=== PATIENT | female | born 1945 | race Caucasian/White ===

== ENCOUNTER 2017-06-03 10:54 | Day surgery (SDC) | payer MEDICARE ==
[~2017-06-03] VITALS: Ht 157.5 cm; Wt 62.6 kg
[~2017-06-03 10:54] MED LIST: ACET500; ALBU.083IS IH; ALBU3IS INH; ALLO300 PO; AMOCLA500 PO; AMOCLA875 PO; ASPI81CH PO; Azulfidine500 MG PO; BENZ100A PO; BISA10S PR; CARI350; CELE200 PO; CEPH500 PO; CHLO500 PO; CIPR500 PO; CITA20; CVS DISPOSABLE399 ML PR; CYCL10 PO; Cyclobenzaprine5 MG PO; DOCU100 PO; DULO30 PO; FERR325 PO; FISH1000; FLUO.1OPSO OD; FLUSAL1005 IH; FLUT.05NI; GABA100 PO; GUAI600T33 PO; HYDACE25S PR; HYDSUL200; HYDSUL200 PO; IBUP800; IBUP800 PO; LEVFLO500 PO; LORA.5 PO; MEPE50; MEPE50 PO; METPRE4DP PO; METR500 PO; MIRT15 PO; Milk Of Ma400 MG/5 M PO; Naprosyn500 MG PO; Norco 5-325 Ta1 EACH PO; OMEP20ER PO; ONDA4SO IV; OXYACE5T PO; PAIN RELIEVER500 MG PO; PENVK500 PO; PRED10 PO; PRED20 PO; PROACE100 PO; PROM25 PO; Prednisone20 MG PO; RXCEPH500 PO; RXPROM25 PO; RXSULTRIDS PO; SENN187 PO; SERT50 PO; SOMA250 MG PO; SULF500 PO; SULF500A; SULF500A PO; SULTRIDS PO; TRAM50; TRAM50 PO; Ultram50 MG PO; VENL37.5ER PO; WALKER USE; XARELTO10 MG PO; [UNRECOGNIZED DRUG - OTHER]
[2017-06-04] MEDS ORDERED: TRAM50 PO (16:43)
[2017-06-04] MEDS ORDERED: Zofran8 MG PO (18:20)
[2017-06-04] MEDS ORDERED: Benadryl25 MG PO (18:20)
[2017-08-31] MEDS ORDERED: PRED5 PO (08:40)
[2017-08-31] MEDS ORDERED: Omeprazole20 M1 PO (08:40)
== END 2017-06-03 16:30 | disposition home or self-care (01) ==
LOC: ORSCSDS 10:54
PROVIDERS: Podiatrist Foot & Ankle Surgery
PROC: 0SGN04Z Fusion of Left Metatarsal-Phalangeal Joint with Internal Fixation Device, Open Approach (ICD-10-PCS; principal; 2017-06-03 12:45)
DX: M20.12 Hallux valgus (acquired), left foot (principal); Z96.9 Presence of functional implant, unspecified; M06.9 Rheumatoid arthritis, unspecified; J45.909 Unspecified asthma, uncomplicated; Z87.891 Personal history of nicotine dependence; E03.9 Hypothyroidism, unspecified; Z79.899 Other long term (current) drug therapy
CPT/HCPCS: C1713; J0171; J0690; J1885; J2250; J3010

== ENCOUNTER 2017-06-04 16:00 | Emergency (ER) | payer MEDICARE, SELFPAY ==
[~2017-06-04] VITALS: Ht 157.5 cm; Wt 62.6 kg
[2017-06-04] MEDS ORDERED: TRAM50 PO (16:43)
[2017-06-04] MEDS ORDERED: Benadryl25 MG PO (18:20)
[2017-06-04] MEDS ORDERED: Zofran8 MG PO (18:20)
[2017-08-31] MEDS ORDERED: PRED5 PO (08:40)
[2017-08-31] MEDS ORDERED: Omeprazole20 M1 PO (08:40)
== END 2017-06-04 18:38 | disposition home or self-care (01) ==
LOC: ER 16:00
DX: G89.18 Other acute postprocedural pain (principal); M79.672 Pain in left foot; T40.2X5A Adverse effect of other opioids, initial encounter; K21.9 Gastro-esophageal reflux disease without esophagitis; Z88.8 Allergy status to other drugs, medicaments and biological substances; Z88.5 Allergy status to narcotic agent; Z88.2 Allergy status to sulfonamides; Z88.1 Allergy status to other antibiotic agents; Z98.890 Other specified postprocedural states
CPT/HCPCS: 96374; 99283; J1885

== ENCOUNTER 2017-09-19 00:44 | Day surgery (SDC) | payer MEDICARE ==
[~2017-09-19 00:44] MED LIST changes: +Benadryl25 MG PO; +Omeprazole20 M1 PO; +PRED5 PO; +Zofran8 MG PO
== END 2017-09-19 11:50 | disposition home or self-care (01) ==
LOC: ATC 00:44
DX: M05.9 Rheumatoid arthritis with rheumatoid factor, unspecified (principal); Z96.653 Presence of artificial knee joint, bilateral
CPT/HCPCS: J7050; Q5103

== ENCOUNTER 2017-11-30 13:42 | Day surgery (SDC) | payer MEDICARE, OTHER | END 2017-11-30 22:43 | disposition home or self-care (01) | LOC: ATC 13:42 | DX: M05.9 Rheumatoid arthritis with rheumatoid factor, unspecified (principal); Z79.52 Long term (current) use of systemic steroids; Z79.899 Other long term (current) drug therapy | CPT/HCPCS: 96413; 96415; J7050; Q5103 ==

== ENCOUNTER 2018-06-20 15:22 | Inpatient (IN) | payer MEDICARE, OTHER ==
[~2018-06-20] VITALS: Ht 157.5 cm; Wt 59.8 kg
[~2018-06-20 15:22] MED LIST changes: +Prednisone10 MG PO; +Voltaren100 GM TOP
[2018-06-20 16:55] LABS: Hematocrit 40.5 % (33.0-51.0); Hemoglobin 12.6 g/dL (11.5-16.0); Mean Corpuscular HGB 28.1 pg (26.0-34.0); Mean Corpuscular HGB Conc 31.1 g/dL (31.5-36.5); Mean Corpuscular Volume 90 fL (80-100); Mean Platelet Volume 10.3 fL (9.1-12.4); Platelet Count 248 K/mm3 (150-400); RDW Coefficient Variation 16.4 % (11.7-14.2); RDW Standard Deviation 54.4 fL (35.1-46.3); Red Blood Cell Count 4.49 M/mm3 (3.80-5.20); White Blood Cell Count 26.12 K/mm3 (4.00-11.30)
[2018-06-20 17:14] LABS: Albumin, Blood 2.8 g/dL (3.4-5.0); Albumin/Globulin Ratio 0.7 (0.8-1.8); Bilirubin, Total 0.5 mg/dL (0.1-1.0); Calcium, Blood 8.5 mg/dL (8.5-10.1); Creatinine, Blood 1.62 mg/dL (0.40-1.00); Globulin, Blood 4.1 g/dL (2.2-4.0); Potassium, Blood 3.3 mmol/L (3.5-5.5); Total Protein, Blood 6.9 g/dL (6.4-8.2)
[2018-06-20 17:35] LABS: BAND PERCENT MAN 27 % (0-8); BASOPHILS ABSOLUTE MAN 0.26 K/mm3 (0.00-0.23); BASOPHILS PERCENT MAN 1 % (0-2); EOSINOPHILS PERCENT MAN 0 % (0-6); LYMPHOCYTES ABSOLUTE MAN 1.56 K/mm3 (0.84-5.20); LYMPHOCYTES PERCENT MAN 6 % (21-46); METAMYELOCYTE ABSOLUTE MAN 0.78 K/mm3 (0.00-0.00); METAMYELOCYTE PERCENT MAN 3 % (0-0); MONOCYTES ABSOLUTE MAN 1.04 K/mm3 (0.16-1.47); MONOCYTES PERCENT MAN 4 % (4-13); NEUTROPHILS ABSOLUTE MAN 22.46 K/mm3 (1.96-9.15); SEG NEUTROPHILS PERCENT MAN 59 % (41-73); TOTAL CELLS COUNTED 100
--- NOTE | 2018-06-20 18:19 | NUR ---
Initial Visit: Palliative Care Consult for AD/POLST. Spoke with Vamsi CARDONA and he requests palliative care consult to discuss completing a POLST with Pt. Pt has chosen a code status of DNR. Pt is A&Ox4 and reports 7/10 pain in her left rib cage area. She denies anxiety and SOB at this time. Pt reports she experiences anxiety on occasion and is able to manage symptom with distraction technique. Pt denies nausea at this time but reports that she was experiencing nausea/vomiting before she arrived to hospital. Pt states it is due to her heart burn. Pt lives at home with her and is of Spiritism rossy. She reports adequate support at home. She has a son that lives next door and comes over to assist when ask. Pt reports during the times that she does not feel well her son comes and cooks the meals. Other velasco Pt reports that she is independent with her ADLs. Discussed AD/POLST with Pt. She reports having her POLST partially completed at home and does not want to complete a new one at this time. She states that she will complete the one that she has. Pt reports no other concerns at this time. Will remain available.
[2018-06-20] MEDS ORDERED: PRED5 PO (18:42)
[2018-06-20] MEDS ORDERED: OMEPRAZOLE20 MG PO (18:43)
--- NOTE | 2018-06-20 19:15 | NUR ---
ASSUMED CARE- PT ARRIVES TO [facility] AT APPROXIMATELY 1850, REPORT TAKEN FROM MERCEDES REEDER. PT IS AOX4. VSS. CURRENTLY AMBULATING WITH STANDBY ASSIST WITH NO SIGNS OF WEAKNESS. PT REPORTS MILD DYSPNEA ON EXERTION- O2 SATS REMAINED >90%. HEART RHYTHM IS NORMAL SINUS. LUNG SOUNDS CLEAR IN THE UPPER LOBES, DIMINISHED IN THE BASES. HACKING, NON-PRODUCTIVE COUGH NOTED. PT REPORTING PAIN TO THE L LOWER RIBS AND ABDOMEN FROM COUGHING. PT ORIENTED TO ROOM AND CALL LIGHT SYSTEM- EDUCATED ON CALLING FOR ASSISTANCE WITH AMBULATION. WILL CONTINUE WITH ADMISSION AND MONITORING. BED IN LOW POSITION, CALL LIGHT IN REACH.
[2018-06-20 19:38] LABS: Source, Urine Clean Catch
[2018-06-20 19:43] LABS: Bilirubin, Urine Neg (Neg); Blood, Urine 2+ (Neg); Glucose Qualitative, Urine Neg (Neg); Ketones, Urine Neg (Neg); Leukocyte Esterase, Urine 2+ (Neg); Nitrite, Urine Neg (Neg); Protein, Urine 1+ (Neg); Urobilinogen, Urine NORM (Normal)
[2018-06-20] MEDS ORDERED: SOMA350 MG PO (19:46)
[2018-06-20 19:49] LABS: Appearance, Urine Clear (Clear); Color, Urine Yellow (P-Yellow)
[2018-06-20 19:50] LABS: Bacteria Many /hpf; Red Blood Cells, Urine 0-2 /hpf (0-2); Squamous Epithelial Cells Few /hpf (Few)
[2018-06-20 20:03] LABS: Influenza A Negative (NEGATIVE); Influenza B Negative (NEGATIVE)
[2018-06-20 20:42] LABS: Creatinine, Urine Random 80.5 mg/dL (27.00-270.00)
[2018-06-21 04:12] LABS: Hematocrit 33.1 % (33.0-51.0); Hemoglobin 10.4 g/dL (11.5-16.0); Mean Corpuscular HGB 28.7 pg (26.0-34.0); Mean Corpuscular HGB Conc 31.4 g/dL (31.5-36.5); Mean Corpuscular Volume 91 fL (80-100); Mean Platelet Volume 10.1 fL (9.1-12.4); Platelet Count 203 K/mm3 (150-400); RDW Coefficient Variation 16.7 % (11.7-14.2); RDW Standard Deviation 56.5 fL (35.1-46.3); Red Blood Cell Count 3.62 M/mm3 (3.80-5.20)
[2018-06-21 04:44] LABS: Albumin, Blood 1.9 g/dL (3.4-5.0); Albumin/Globulin Ratio 0.6 (0.8-1.8); Bilirubin, Total 0.3 mg/dL (0.1-1.0); Bun/Creatinine Ratio 21.2 (12.0-20.0); Calcium, Blood 7.5 mg/dL (8.5-10.1); Creatinine, Blood 1.04 mg/dL (0.40-1.00); Globulin, Blood 3.1 g/dL (2.2-4.0)
--- NOTE | 2018-06-21 06:03 | NUR ---
SHIFT SUMMARY- PT HAS REMAINED AOX4 THROUGHOUT SHIFT. PLEASANT AND COOPERATIVE WITH CARE. PT WITH EPISODES OF HYPOTENSION THROUGHOUT THE NIGHT, ALL OTHER VSS. ONE LITER OF FLUIDS ORDERED FOR HYPOTENSION TO RUN @500 ML/HR WITH LITTLE CHANGE TO BP. PT IS ASYMPTOMATIC AND REPORTS THAT SYSTOLIC BP RUNS IN THE 90'S-100'S AT BASELINE. O2 SATS HAVE REMAINED >90% THROUGHOUT THE NIGHT ON RA. CONTINUES TO HAVE HACKING, NON-PRODUCTIVE COUGH. MEDICATED ONCE FOR HEADACHE PAIN THAT DECREASED WITH ORDERED MEDICATIONS. NO OTHER CHANGES NOTED FROM INITIAL ASSESSMENT. WILL CONTINUE TO MONITOR AND REPORT TO ONCOMING SHIFT RN. BED IN LOW POSITION, CALL LIGHT IN REACH.
--- NOTE | 2018-06-21 09:42 | NUR ---
NURSING PCU DAYSHIFT: Assumed care of pt at approx 0700. A/O, cooperative w/care. Mild general weakness noted though can reposition independently. C/O 6-7/10 back/rib pain r/t cough, denies need for medication tx at this time. Skin is fragile w/no breakdown noted. Tele in place, NSR, no c/o CP/pressure, BP stable. L/S w/exp wheezes t/o, dyspnea w/exertion, O2 sat low to mid 90's on RA, harsh cough producing stringy/blood tinged sputum. Abd SNT, BT+, voiding w/o difficulty per pt. PIV x1, NS infusing at 100cc/hr. Pt denies any current needs or questions regarding plan of care. Call light in reach and pt is able to use w/o difficulty. Awaiting rounding from PMD, will discuss possible status change. Cont to monitor for any changes.
--- NOTE | 2018-06-21 12:14 | NUR ---
NURSING PCU DAYSHIFT TRANSFER SUMMARY: No acute changes noted t/o the a.m. Seen by PMD, new d/o received. Pt changed to medical status w/o tele, bed assignment received. Awaiting callback from accepting RN to provide telephone report. Will xfer pt via w/c, cont to monitor until transfer to medical floor.
--- NOTE | 2018-06-21 17:34 | NUR ---
SHIFT SUMMARY PATIENT WAS TRANSFERED FROM PCU IN THE AFTERNOON FOR PNUMONIA, RIGHT LUNG SOUNDS CLEAR, LLL WAS COURSE. PATIENT IS ABLE TO SWALLOW MEDICATIONS WITH WATER. PATIENT IS ALERT, ORIENTATED, AND COOPERATIVE. PAIN IN LEFT RIB AREA WITH MOVMENT OR DEEP BREATHING. AMBULATES WITH STANDBY ASSIST, GOT A LITTLE SHORT OF BREATH DURING AMBULATION, BUT DOES WELL ON ROOM AIR.
--- NOTE | 2018-06-21 17:35 | NUR ---
SHIFT SUMMARY- PCU TRANSFER THIS AFTERNOON. PT A/OX4, SBA INTO BATHROOM. PT MEDICATED X1 WITH TYLENOL. LS DIMINISHED, WITH SLIGHT COARSENESS TO LLL. SOB WITH EXERTION, ON RA. PAIN WITH INSPIRATION, OCC PRODUCTIVE COUGH WITH THICK YELLOW SPUTUM WITH BLOOD STREAKED. HRR. VSS. NO ACUTE CHANGES SINCE ARRIVAL TO FLOOR.
[2018-06-22 05:37] LABS: Hematocrit 31.1 % (33.0-51.0); Hemoglobin 9.5 g/dL (11.5-16.0); Mean Corpuscular HGB 28.1 pg (26.0-34.0); Mean Corpuscular HGB Conc 30.5 g/dL (31.5-36.5); Mean Corpuscular Volume 92 fL (80-100); Mean Platelet Volume 10.8 fL (9.1-12.4); Platelet Count 200 K/mm3 (150-400); RDW Coefficient Variation 17.2 % (11.7-14.2); RDW Standard Deviation 58.2 fL (35.1-46.3); Red Blood Cell Count 3.38 M/mm3 (3.80-5.20); White Blood Cell Count 14.18 K/mm3 (4.00-11.30)
[2018-06-22 06:08] LABS: BAND PERCENT MAN 3 % (0-8); BASOPHILS PERCENT MAN 0 % (0-2); EOSINOPHILS PERCENT MAN 0 % (0-6); LYMPHOCYTES ABSOLUTE MAN 0.85 K/mm3 (0.84-5.20); LYMPHOCYTES PERCENT MAN 6 % (21-46); MONOCYTES ABSOLUTE MAN 0.56 K/mm3 (0.16-1.47); MONOCYTES PERCENT MAN 4 % (4-13); NEUTROPHILS ABSOLUTE MAN 12.76 K/mm3 (1.96-9.15); SEG NEUTROPHILS PERCENT MAN 87 % (41-73); TOTAL CELLS COUNTED 100
[2018-06-22 06:12] LABS: Alanine Aminotransfer (ALT/SGP 12 U/L (12-78); Albumin/Globulin Ratio 0.6 (0.8-1.8); Alk Phos 112 U/L (50-136); Anion Gap 7 mmol/L (6-16); Aspartate Aminotrans (AST/SGOT 19 U/L (12-37); Bilirubin, Total 0.2 mg/dL (0.1-1.0); Blood Urea Nitrogen 16 mg/dL (8-24); Bun/Creatinine Ratio 17.1 (12.0-20.0); CO2, Blood 23 mmol/L (21-32); Chloride, Blood 114 mmol/L (98-108); Creatinine, Blood 0.94 mg/dL (0.40-1.00); Globulin, Blood 3.4 g/dL (2.2-4.0); Glomerular Filtration Rate >60 (60-); Glucose, Blood 82 mg/dL (70-99); Potassium, Blood 3.9 mmol/L (3.5-5.5); Sodium, Blood 144 mmol/L (136-145); Total Protein, Blood 5.4 g/dL (6.4-8.2)
--- NOTE | 2018-06-22 06:13 | NUR ---
SHIFT SUMMARY PT HAD NO ISSUES NOTED. PT HAD LITTLE URINE OUTPUT AND POOR PO FLUID INTAKE. PT MAY BENEFIT FROM IV HYDRATION. PT HAS SLEPT WELL T/O SHIFT. PT CURRENTLY SLEEPING AND BREATHING EASY. CALL LIGHT IN REACH.
--- NOTE | 2018-06-22 18:13 | NUR ---
PATIENT ALERT AND ORIENTED. AMBULATORY, STEADY GAIT IN ROOM. VERY TALKATIVE. COOPERATIVE. INFREQUENT COUGH. UNLABORED RESPIRATIONS. IV PATENT. WILL CONTINUE TO MONITOR.
--- NOTE | 2018-06-23 04:41 | NUR ---
HAND CARVER SUMMARY NO ACUTE CHANGES THIS SHIFT. PT AAOX4 AND VERY PLEASANT. STANDBY ASSIST INTO THE BATHROOM. DENIES PAIN, SOB, N/V. CALLS APPROPRIATELY FOR ASSISTANCE. VSS, WILL CONTINUE TO MONITOR.
[2018-06-23 05:39] LABS: BASOPHILS ABSOLUTE AUTO 0.02 K/mm3 (0.00-0.23); BASOPHILS PERCENT AUTO 0 % (0-2); EOSINOPHILS ABSOLUTE AUTO 0.03 K/mm3 (0.00-0.68); EOSINOPHILS PERCENT AUTO 0 % (0-6); Hematocrit 30.2 % (33.0-51.0); Hemoglobin 9.2 g/dL (11.5-16.0); IMMATURE GRAN ABSOLUTE AUTO 0.07 K/mm3 (0.00-0.10); IMMATURE GRAN PERCENT AUTO 1 % (0-1); LYMPHOCYTES PERCENT AUTO 19 % (21-46); MONOCYTES ABSOLUTE AUTO 0.55 K/mm3 (0.16-1.47); MONOCYTES PERCENT AUTO 7 % (4-13); Mean Corpuscular HGB 28.1 pg (26.0-34.0); Mean Corpuscular HGB Conc 30.5 g/dL (31.5-36.5); Mean Corpuscular Volume 92 fL (80-100); Mean Platelet Volume 10.6 fL (9.1-12.4); NEUTROPHILS ABSOLUTE AUTO 6.04 K/mm3 (1.96-9.15); NEUTROPHILS PERCENT AUTO 73 % (41-73); Platelet Count 205 K/mm3 (150-400); RDW Coefficient Variation 17.5 % (11.7-14.2); RDW Standard Deviation 59.7 fL (35.1-46.3); Red Blood Cell Count 3.27 M/mm3 (3.80-5.20); White Blood Cell Count 8.31 K/mm3 (4.00-11.30)
[2018-06-23 06:10] LABS: Alanine Aminotransfer (ALT/SGP 12 U/L (12-78); Albumin, Blood 2.1 g/dL (3.4-5.0); Albumin/Globulin Ratio 0.7 (0.8-1.8); Alk Phos 104 U/L (50-136); Anion Gap 7 mmol/L (6-16); Aspartate Aminotrans (AST/SGOT 12 U/L (12-37); Bilirubin, Total 0.3 mg/dL (0.1-1.0); Blood Urea Nitrogen 11 mg/dL (8-24); CO2, Blood 22 mmol/L (21-32); Calcium, Blood 8.1 mg/dL (8.5-10.1); Chloride, Blood 114 mmol/L (98-108); Creatinine, Blood 0.78 mg/dL (0.40-1.00); Globulin, Blood 3.2 g/dL (2.2-4.0); Glomerular Filtration Rate >60 (60-); Glucose, Blood 123 mg/dL (70-99); Sodium, Blood 143 mmol/L (136-145); Total Protein, Blood 5.3 g/dL (6.4-8.2)
--- NOTE | 2018-06-23 10:21 | NUR ---
SHIFT HAND OFF TO KRYSTAL Ramirez RN. NO CHANGES IN PT. possible d/c today
--- NOTE | 2018-06-23 10:26 | NUR ---
BEDSIDE REPORT RECEIVED. PT LYING IN BED, MANSOOR. SPOUSE AT BEDSIDE. PT DENIES PAIN. PT WOULD LIKE TO GO HOME TODAY. WILL COORDINATE WITH PROVIDER.
[2018-06-23] MEDS ORDERED: AZIT500 PO (11:47)
[2018-06-23] MEDS ORDERED: Mucinex600 MG PO (11:47)
--- NOTE | 2018-06-23 12:00 | NUR ---
DC REVIEWED WITH PT AND FAMILY. RX FAXED TO [facility]. IV REMOVED, TIP INTACT. PT WANTS TO EAT LUNCH BEFORE LEAVING.
--- NOTE | 2018-06-23 12:38 | NUR ---
PT ESCORTED TO LOBBY VIA WC. ALL BELONGINGS WITH PT.
== END 2018-06-23 12:32 | disposition home or self-care (01) | DRG 871 ==
LOC: ER 15:22 → PCU 17:51 → MEDS 06-21 12:34
PROVIDERS: Nurse Practitioner Acute Care; Physician Assistant; ADMIT Internal Medicine
DX: A41.9 Sepsis, unspecified organism (principal); J18.9 Pneumonia, unspecified organism; D84.9 Immunodeficiency, unspecified; E87.2 Acidosis; N17.9 Acute kidney failure, unspecified; R65.20 Severe sepsis without septic shock; M06.9 Rheumatoid arthritis, unspecified; J45.20 Mild intermittent asthma, uncomplicated; E87.6 Hypokalemia; M19.90 Unspecified osteoarthritis, unspecified site; F32.9 Major depressive disorder, single episode, unspecified; K21.9 Gastro-esophageal reflux disease without esophagitis; Z66 Do not resuscitate
CPT/HCPCS: 36415; 71046; 80053; 81001; 82550; 82570; 83605; 83735; 84300; 85025; 85027; 87040; 87186; 87449; 87804; 96361; 96365; 99285-25; J0456; J0692; J0696; J1650; J1885; J7030; J7040; J7050; J7120; J7512

== ENCOUNTER 2018-08-15 04:36 | Emergency (ER) | payer MEDICARE, OTHER ==
[~2018-08-15] VITALS: Ht 157.5 cm; Wt 56.2 kg
[~2018-08-15 04:36] MED LIST changes: +AZIT500 PO; +Mucinex600 MG PO; +OMEPRAZOLE20 MG PO; +SOMA350 MG PO
== END 2018-08-15 06:15 | disposition left against medical advice (07) ==
LOC: ER 04:36
DX: M25.512 Pain in left shoulder (principal); Z88.5 Allergy status to narcotic agent; Z79.52 Long term (current) use of systemic steroids; Z79.899 Other long term (current) drug therapy; K21.9 Gastro-esophageal reflux disease without esophagitis
CPT/HCPCS: 99283

== ENCOUNTER 2019-11-21 06:10 | Day surgery (SDC) | payer MEDICARE ==
[~2019-11-21] VITALS: Ht 152.4 cm; Wt 55.7 kg
[~2019-11-21 06:10] MED LIST changes: +CELE100 PO; +CITALOPRAM HBR10 MG PO; +DIVA500ER PO; +FLUT1DIS5 INH; +TIZA4 PO; +VOLTAREN ARTHRI20 GM
[2019-11-21] MEDS ORDERED: Carisoprodol350 MG PO (07:20)
== END 2019-11-21 09:34 | disposition home or self-care (01) ==
LOC: ORSCSDS 06:10
PROVIDERS: Orthopaedic Surgery
PROC: 0LB60ZZ Excision of Left Lower Arm and Wrist Tendon, Open Approach (ICD-10-PCS; principal; 2019-11-21 07:30)
DX: M67.432 Ganglion, left wrist (principal); M06.332 Rheumatoid nodule, left wrist; J44.9 Chronic obstructive pulmonary disease, unspecified; K21.9 Gastro-esophageal reflux disease without esophagitis; Z79.899 Other long term (current) drug therapy
CPT/HCPCS: 88304; J0171; J0690; J1100; J2405; J2704; J7120

== ENCOUNTER → 2020-03-26 | Outpatient (CLI) | payer MEDICARE ==
[~2020-03-26] MED LIST changes: +Carisoprodol350 MG PO
[2020-03-26 12:50] LABS: Source, Urine Clean Catch
[2020-03-26 15:13] LABS: Appearance, Urine Turbid (Clear); Bilirubin, Urine Neg (Neg); Blood, Urine 5+ (Neg); Color, Urine Yellow (P-Yellow); Glucose Qualitative, Urine Neg (Neg); Ketones, Urine Neg (Neg); Leukocyte Esterase, Urine 3+ (Neg); Nitrite, Urine Neg (Neg); Protein, Urine 3+ (Neg); Specific Gravity, Urine 1.015 (1.003-1.022); Urobilinogen, Urine 1+ (Normal)
[2020-03-26 15:58] LABS: Bacteria Many /hpf; Red Blood Cells, Urine 50-100 /hpf (0-2); Squamous Epithelial Cells Rare /hpf (Few); White Blood Cells, Urine TNTC /hpf (0-5)
== END | disposition home or self-care (01) ==
LOC: LAB 12:15 → LAB SHORT 12:15
PROVIDERS: Internal Medicine
DX: N30.00 Acute cystitis without hematuria (principal)
CPT/HCPCS: 81001; 87077; 87086; 87186

== ENCOUNTER 2020-05-21 07:41 | Emergency (ER) | payer MEDICARE, OTHER ==
[~2020-05-21] VITALS: Ht 152.4 cm; Wt 49.9 kg
[2020-05-21 08:55] LABS: BASOPHILS ABSOLUTE AUTO 0.01 K/mm3 (0.00-0.23); BASOPHILS PERCENT AUTO 0 % (0-2); EOSINOPHILS ABSOLUTE AUTO 0.14 K/mm3 (0.00-0.68); EOSINOPHILS PERCENT AUTO 2 % (0-6); Hematocrit 36.8 % (33.0-51.0); Hemoglobin 11.7 g/dL (11.5-16.0); IMMATURE GRAN ABSOLUTE AUTO 0.02 K/mm3 (0.00-0.10); IMMATURE GRAN PERCENT AUTO 0 % (0-1); LYMPHOCYTES ABSOLUTE AUTO 1.13 K/mm3 (0.84-5.20); LYMPHOCYTES PERCENT AUTO 15 % (21-46); MONOCYTES ABSOLUTE AUTO 0.44 K/mm3 (0.16-1.47); MONOCYTES PERCENT AUTO 6 % (4-13); Mean Corpuscular HGB 27.7 pg (26.0-34.0); Mean Corpuscular HGB Conc 31.8 g/dL (31.5-36.5); Mean Corpuscular Volume 87 fL (80-100); Mean Platelet Volume 9.8 fL (9.1-12.4); NEUTROPHILS ABSOLUTE AUTO 5.78 K/mm3 (1.96-9.15); NEUTROPHILS PERCENT AUTO 77 % (41-73); Platelet Count 344 K/mm3 (150-400); RDW Coefficient Variation 15.3 % (11.7-14.2); RDW Standard Deviation 48.8 fL (35.1-46.3); Red Blood Cell Count 4.23 M/mm3 (3.80-5.20); White Blood Cell Count 7.52 K/mm3 (4.00-11.30)
[2020-05-21 09:08] LABS: Alanine Aminotransfer (ALT/SGP 11 U/L (12-78); Albumin/Globulin Ratio 0.7 (0.8-1.8); Alk Phos 96 U/L (50-136); Anion Gap 7 mmol/L (6-16); Aspartate Aminotrans (AST/SGOT 14 U/L (12-37); Bilirubin, Total 0.4 mg/dL (0.1-1.0); Blood Urea Nitrogen 10 mg/dL (8-24); Bun/Creatinine Ratio 12.9 (12.0-20.0); CO2, Blood 25 mmol/L (21-32); Calcium, Blood 9.1 mg/dL (8.5-10.1); Chloride, Blood 107 mmol/L (98-108); Creatinine, Blood 0.78 mg/dL (0.40-1.00); Globulin, Blood 4.5 g/dL (2.2-4.0); Glomerular Filtration Rate >60 (60-); Glucose, Blood 129 mg/dL (70-99); Potassium, Blood 4.1 mmol/L (3.5-5.5); Sodium, Blood 139 mmol/L (136-145); Total Protein, Blood 7.5 g/dL (6.4-8.2)
[2020-05-21 13:30] LABS: Source, Urine Clean Catch
[2020-05-21 13:35] LABS: Appearance, Urine Clear (Clear); Bilirubin, Urine Neg (Neg); Blood, Urine 1+ (Neg); Color, Urine Yellow (P-Yellow); Glucose Qualitative, Urine Neg (Neg); Ketones, Urine Neg (Neg); Leukocyte Esterase, Urine Neg (Neg); Nitrite, Urine Neg (Neg); Protein, Urine 1+ (Neg); Urobilinogen, Urine NORM (Normal)
[2020-05-21 14:14] LABS: Bacteria Rare /hpf; Red Blood Cells, Urine 0-2 /hpf (0-2); Squamous Epithelial Cells Few /hpf (Few)
== END 2020-05-21 16:01 | disposition home or self-care (01) ==
LOC: ER 07:41
PROVIDERS: Physician Assistant
DX: K52.9 Noninfective gastroenteritis and colitis, unspecified (principal); Z79.899 Other long term (current) drug therapy
CPT/HCPCS: 74177; 80053; 81001; 83690; 85025; 96361; 96374-59; 99284-25; J2405; J7030; Q9967

== ENCOUNTER 2020-06-14 19:23 | Emergency (ER) | payer MEDICARE, OTHER ==
[~2020-06-14] VITALS: Ht 172.7 cm; Wt 49.9 kg
[2020-06-14 20:18] LABS: BASOPHILS ABSOLUTE AUTO 0.01 K/mm3 (0.00-0.23); BASOPHILS PERCENT AUTO 0 % (0-2); EOSINOPHILS ABSOLUTE AUTO 0.07 K/mm3 (0.00-0.68); EOSINOPHILS PERCENT AUTO 1 % (0-6); Hematocrit 37.4 % (33.0-51.0); Hemoglobin 12.1 g/dL (11.5-16.0); IMMATURE GRAN ABSOLUTE AUTO 0.02 K/mm3 (0.00-0.10); IMMATURE GRAN PERCENT AUTO 0 % (0-1); LYMPHOCYTES ABSOLUTE AUTO 1.46 K/mm3 (0.84-5.20); LYMPHOCYTES PERCENT AUTO 20 % (21-46); MONOCYTES ABSOLUTE AUTO 0.39 K/mm3 (0.16-1.47); MONOCYTES PERCENT AUTO 5 % (4-13); Mean Corpuscular HGB 27.9 pg (26.0-34.0); Mean Corpuscular HGB Conc 32.4 g/dL (31.5-36.5); Mean Corpuscular Volume 86 fL (80-100); Mean Platelet Volume 9.9 fL (9.1-12.4); NEUTROPHILS ABSOLUTE AUTO 5.33 K/mm3 (1.96-9.15); NEUTROPHILS PERCENT AUTO 73 % (41-73); Platelet Count 259 K/mm3 (150-400); RDW Coefficient Variation 15.7 % (11.7-14.2); RDW Standard Deviation 50.1 fL (35.1-46.3); Red Blood Cell Count 4.34 M/mm3 (3.80-5.20); White Blood Cell Count 7.28 K/mm3 (4.00-11.30)
[2020-06-14 20:39] LABS: Alanine Aminotransfer (ALT/SGP 13 U/L (12-78); Albumin/Globulin Ratio 0.7 (0.8-1.8); Alk Phos 86 U/L (50-136); Anion Gap 6 mmol/L (6-16); Aspartate Aminotrans (AST/SGOT 18 U/L (12-37); Bilirubin, Total 0.4 mg/dL (0.1-1.0); Blood Urea Nitrogen 11 mg/dL (8-24); Bun/Creatinine Ratio 14.4 (12.0-20.0); CO2, Blood 23 mmol/L (21-32); Calcium, Blood 8.7 mg/dL (8.5-10.1); Chloride, Blood 105 mmol/L (98-108); Creatinine, Blood 0.77 mg/dL (0.40-1.00); Globulin, Blood 4.4 g/dL (2.2-4.0); Glomerular Filtration Rate >60 (60-); Glucose, Blood 127 mg/dL (70-99); Magnesium, Blood 1.8 mg/dL (1.6-2.4); Potassium, Blood 3.7 mmol/L (3.5-5.5); Sodium, Blood 134 mmol/L (136-145); Total Protein, Blood 7.4 g/dL (6.4-8.2); Troponin I <0.015 ng/mL (0.000-0.040)
[2020-06-14 21:36] LABS: Source, Urine Clean Catch
[2020-06-14 21:41] LABS: Appearance, Urine Clear (Clear); Bilirubin, Urine Neg (Neg); Blood, Urine 1+ (Neg); Color, Urine Yellow (P-Yellow); Glucose Qualitative, Urine Neg (Neg); Ketones, Urine 2+ (Neg); Leukocyte Esterase, Urine 1+ (Neg); Nitrite, Urine Neg (Neg); Protein, Urine 2+ (Neg); Specific Gravity, Urine 1.015 (1.003-1.022); Urobilinogen, Urine NORM (Normal)
[2020-06-14 21:47] LABS: Amorphous Mod (0-Heavy); Bacteria Few /hpf; Mucus Light (0-Heavy); Red Blood Cells, Urine 0-2 /hpf (0-2); Squamous Epithelial Cells Few /hpf (Few)
== END 2020-06-14 21:58 | disposition home or self-care (01) ==
LOC: ER 19:23
PROVIDERS: Physician Assistant
DX: K59.00 Constipation, unspecified (principal); Z79.899 Other long term (current) drug therapy; Z88.5 Allergy status to narcotic agent; Z88.8 Allergy status to other drugs, medicaments and biological substances
CPT/HCPCS: 36415; 80053; 81001; 83605; 83690; 83735; 84145; 84484; 85025; 87077; 87086; 87186; 96374; 99283-25; A9270; J2405

== ENCOUNTER → 2020-12-17 | Outpatient (CLI) | payer MEDICARE ==
[2020-12-17 20:35] LABS: BASOPHILS ABSOLUTE AUTO 0.02 K/mm3 (0.00-0.23); BASOPHILS PERCENT AUTO 0 % (0-2); EOSINOPHILS ABSOLUTE AUTO 0.24 K/mm3 (0.00-0.68); EOSINOPHILS PERCENT AUTO 4 % (0-6); Hematocrit 37.9 % (33.0-51.0); Hemoglobin 11.9 g/dL (11.5-16.0); IMMATURE GRAN ABSOLUTE AUTO 0.01 K/mm3 (0.00-0.10); IMMATURE GRAN PERCENT AUTO 0 % (0-1); LYMPHOCYTES ABSOLUTE AUTO 2.95 K/mm3 (0.84-5.20); LYMPHOCYTES PERCENT AUTO 50 % (21-46); MONOCYTES PERCENT AUTO 9 % (4-13); Mean Corpuscular HGB Conc 31.4 g/dL (31.5-36.5); Mean Corpuscular Volume 92 fL (80-100); Mean Platelet Volume 10.4 fL (9.1-12.4); NEUTROPHILS ABSOLUTE AUTO 2.19 K/mm3 (1.96-9.15); NEUTROPHILS PERCENT AUTO 37 % (41-73); Platelet Count 314 K/mm3 (150-400); RDW Coefficient Variation 14.3 % (11.7-14.2); RDW Standard Deviation 48.7 fL (35.1-46.3); Red Blood Cell Count 4.11 M/mm3 (3.80-5.20); White Blood Cell Count 5.91 K/mm3 (4.00-11.30)
[2020-12-17 20:53] LABS: Alanine Aminotransfer (ALT/SGP 13 U/L (12-78); Albumin/Globulin Ratio 0.6 (0.8-1.8); Alk Phos 93 U/L (50-136); Anion Gap 3 mmol/L (6-16); Aspartate Aminotrans (AST/SGOT 16 U/L (12-37); Bilirubin, Total 0.2 mg/dL (0.1-1.0); Blood Urea Nitrogen 11 mg/dL (8-24); Bun/Creatinine Ratio 14.6 (12.0-20.0); CO2, Blood 28 mmol/L (21-32); Calcium, Blood 9.1 mg/dL (8.5-10.1); Chloride, Blood 104 mmol/L (98-108); Creatinine, Blood 0.75 mg/dL (0.40-1.00); Globulin, Blood 4.7 g/dL (2.2-4.0); Glomerular Filtration Rate >60 (60-); Glucose, Blood 81 mg/dL (70-99); Potassium, Blood 4.1 mmol/L (3.5-5.5); Sodium, Blood 135 mmol/L (136-145); Total Protein, Blood 7.7 g/dL (6.4-8.2)
[2020-12-22 16:08] LABS: QUANTIFERON MITOGEN VALUE >10.00 IU/mL (.); QUANTIFERON NIL VALUE 0.34 IU/mL (.); QUANTIFERON TB1 AG VALUE 0.31 IU/mL (.); QUANTIFERON TB2 AG VALUE 0.28 IU/mL (.); QUANTIFERON-TB GOLD PLUS Negative (Negative)
== END | disposition home or self-care (01) ==
LOC: LAB SHORT 16:30
PROVIDERS: Internal Medicine Rheumatology
DX: M05.9 Rheumatoid arthritis with rheumatoid factor, unspecified (principal)
CPT/HCPCS: 80053; 85025; 85651

== ENCOUNTER → 2021-03-26 | Outpatient (CLI) | payer MEDICARE ==
[2021-03-26 15:08] LABS: BASOPHILS ABSOLUTE AUTO 0.03 K/mm3 (0.00-0.23); BASOPHILS PERCENT AUTO 1 % (0-2); EOSINOPHILS ABSOLUTE AUTO 0.28 K/mm3 (0.00-0.68); EOSINOPHILS PERCENT AUTO 5 % (0-6); Hematocrit 39.9 % (33.0-51.0); Hemoglobin 12.5 g/dL (11.5-16.0); IMMATURE GRAN ABSOLUTE AUTO 0.02 K/mm3 (0.00-0.10); IMMATURE GRAN PERCENT AUTO 0 % (0-1); LYMPHOCYTES ABSOLUTE AUTO 2.29 K/mm3 (0.84-5.20); LYMPHOCYTES PERCENT AUTO 38 % (21-46); MONOCYTES ABSOLUTE AUTO 0.56 K/mm3 (0.16-1.47); MONOCYTES PERCENT AUTO 9 % (4-13); Mean Corpuscular HGB 29.5 pg (26.0-34.0); Mean Corpuscular HGB Conc 31.3 g/dL (31.5-36.5); Mean Corpuscular Volume 94 fL (80-100); Mean Platelet Volume 10.2 fL (9.1-12.4); NEUTROPHILS ABSOLUTE AUTO 2.87 K/mm3 (1.96-9.15); NEUTROPHILS PERCENT AUTO 47 % (41-73); Platelet Count 301 K/mm3 (150-400); RDW Coefficient Variation 13.5 % (11.7-14.2); Red Blood Cell Count 4.24 M/mm3 (3.80-5.20); White Blood Cell Count 6.05 K/mm3 (4.00-11.30)
[2021-03-26 15:36] LABS: Alanine Aminotransfer (ALT/SGP 13 U/L (12-78); Albumin, Blood 3.1 g/dL (3.4-5.0); Albumin/Globulin Ratio 0.8 (0.8-1.8); Alk Phos 91 U/L (50-136); Anion Gap 8 mmol/L (6-16); Aspartate Aminotrans (AST/SGOT 16 U/L (12-37); Bilirubin, Total 0.5 mg/dL (0.1-1.0); Blood Urea Nitrogen 11 mg/dL (8-24); Bun/Creatinine Ratio 14.8 (12.0-20.0); CO2, Blood 27 mmol/L (21-32); Calcium, Blood 8.6 mg/dL (8.5-10.1); Chloride, Blood 103 mmol/L (98-108); Creatinine, Blood 0.74 mg/dL (0.40-1.00); Glomerular Filtration Rate >60 (60-); Glucose, Blood 91 mg/dL (70-99); Potassium, Blood 4.3 mmol/L (3.5-5.5); Sodium, Blood 138 mmol/L (136-145); Total Protein, Blood 7.1 g/dL (6.4-8.2)
== END | disposition home or self-care (01) ==
LOC: LAB SHORT 09:20
PROVIDERS: Internal Medicine Rheumatology
DX: M05.9 Rheumatoid arthritis with rheumatoid factor, unspecified (principal)
CPT/HCPCS: 80053; 85025; 85651

== ENCOUNTER 2021-04-29 16:22 | Inpatient (IN) | payer MEDICARE ==
[~2021-04-29] VITALS: Ht 152.4 cm; Wt 50.0 kg
[2021-04-29 17:04] LABS: BASOPHILS ABSOLUTE AUTO 0.01 K/mm3 (0.00-0.23); BASOPHILS PERCENT AUTO 0 % (0-2); EOSINOPHILS ABSOLUTE AUTO 0.23 K/mm3 (0.00-0.68); EOSINOPHILS PERCENT AUTO 4 % (0-6); Hematocrit 38.3 % (33.0-51.0); Hemoglobin 12.5 g/dL (11.5-16.0); IMMATURE GRAN ABSOLUTE AUTO 0.01 K/mm3 (0.00-0.10); IMMATURE GRAN PERCENT AUTO 0 % (0-1); LYMPHOCYTES ABSOLUTE AUTO 3.01 K/mm3 (0.84-5.20); LYMPHOCYTES PERCENT AUTO 47 % (21-46); MONOCYTES ABSOLUTE AUTO 0.45 K/mm3 (0.16-1.47); MONOCYTES PERCENT AUTO 7 % (4-13); Mean Corpuscular HGB 30.5 pg (26.0-34.0); Mean Corpuscular HGB Conc 32.6 g/dL (31.5-36.5); Mean Corpuscular Volume 93 fL (80-100); Mean Platelet Volume 10.5 fL (9.1-12.4); NEUTROPHILS ABSOLUTE AUTO 2.74 K/mm3 (1.96-9.15); NEUTROPHILS PERCENT AUTO 42 % (41-73); Platelet Count 269 K/mm3 (150-400); RDW Coefficient Variation 13.3 % (11.7-14.2); RDW Standard Deviation 45.8 fL (35.1-46.3); White Blood Cell Count 6.45 K/mm3 (4.00-11.30)
[2021-04-29 17:13] LABS: Alanine Aminotransfer (ALT/SGP 15 U/L (12-78); Albumin, Blood 3.3 g/dL (3.4-5.0); Albumin/Globulin Ratio 0.9 (0.8-1.8); Alk Phos 82 U/L (50-136); Anion Gap 4 mmol/L (6-16); Aspartate Aminotrans (AST/SGOT 22 U/L (12-37); Bilirubin, Total 0.5 mg/dL (0.1-1.0); Blood Urea Nitrogen 13 mg/dL (8-24); Bun/Creatinine Ratio 16.4 (12.0-20.0); CO2, Blood 28 mmol/L (21-32); Calcium, Blood 8.7 mg/dL (8.5-10.1); Chloride, Blood 104 mmol/L (98-108); Creatinine, Blood 0.79 mg/dL (0.40-1.00); Globulin, Blood 3.8 g/dL (2.2-4.0); Glomerular Filtration Rate >60 (60-); Glucose, Blood 93 mg/dL (70-99); Potassium, Blood 4.3 mmol/L (3.5-5.5); Sodium, Blood 136 mmol/L (136-145); Total Protein, Blood 7.1 g/dL (6.4-8.2)
[2021-04-29 18:44] LABS: Source, Urine Clean Catch
[2021-04-29 19:02] LABS: Appearance, Urine Clear (Clear); Bilirubin, Urine Neg (Neg); Blood, Urine 1+ (Neg); Color, Urine Yellow (P-Yellow); Glucose Qualitative, Urine Neg (Neg); Ketones, Urine Neg (Neg); Leukocyte Esterase, Urine Neg (Neg); Nitrite, Urine Neg (Neg); Protein, Urine 1+ (Neg); Specific Gravity, Urine 1.005 (1.003-1.022); Urobilinogen, Urine NORM (Normal)
[2021-04-29 19:24] LABS: Bacteria Few /hpf; Red Blood Cells, Urine 0-2 /hpf (0-2); Squamous Epithelial Cells Rare /hpf (Few); White Blood Cells, Urine 0-2 /hpf (0-5)
[2021-04-30 04:12] LABS: BASOPHILS ABSOLUTE AUTO 0.01 K/mm3 (0.00-0.23); BASOPHILS PERCENT AUTO 0 % (0-2); EOSINOPHILS ABSOLUTE AUTO 0.25 K/mm3 (0.00-0.68); EOSINOPHILS PERCENT AUTO 5 % (0-6); Hematocrit 38.3 % (33.0-51.0); Hemoglobin 12.1 g/dL (11.5-16.0); IMMATURE GRAN PERCENT AUTO 0 % (0-1); LYMPHOCYTES ABSOLUTE AUTO 2.17 K/mm3 (0.84-5.20); LYMPHOCYTES PERCENT AUTO 42 % (21-46); MONOCYTES ABSOLUTE AUTO 0.46 K/mm3 (0.16-1.47); MONOCYTES PERCENT AUTO 9 % (4-13); Mean Corpuscular HGB Conc 31.6 g/dL (31.5-36.5); Mean Corpuscular Volume 95 fL (80-100); Mean Platelet Volume 10.1 fL (9.1-12.4); NEUTROPHILS ABSOLUTE AUTO 2.23 K/mm3 (1.96-9.15); NEUTROPHILS PERCENT AUTO 44 % (41-73); Platelet Count 255 K/mm3 (150-400); RDW Coefficient Variation 13.3 % (11.7-14.2); RDW Standard Deviation 46.9 fL (35.1-46.3); Red Blood Cell Count 4.03 M/mm3 (3.80-5.20); White Blood Cell Count 5.12 K/mm3 (4.00-11.30)
[2021-04-30 04:20] LABS: International Normalized Ratio 1.01; Prothrombin Time Results 10.6 Sec (9.7-11.5)
[2021-04-30 04:43] LABS: Alanine Aminotransfer (ALT/SGP 14 U/L (12-78); Albumin, Blood 2.9 g/dL (3.4-5.0); Albumin/Globulin Ratio 0.8 (0.8-1.8); Alk Phos 77 U/L (50-136); Anion Gap 4 mmol/L (6-16); Aspartate Aminotrans (AST/SGOT 20 U/L (12-37); Bilirubin, Total 0.4 mg/dL (0.1-1.0); Blood Urea Nitrogen 10 mg/dL (8-24); Bun/Creatinine Ratio 14.4 (12.0-20.0); CO2, Blood 28 mmol/L (21-32); Calcium, Blood 8.3 mg/dL (8.5-10.1); Chloride, Blood 105 mmol/L (98-108); Globulin, Blood 3.6 g/dL (2.2-4.0); Glomerular Filtration Rate >60 (60-); Glucose, Blood 89 mg/dL (70-99); Potassium, Blood 4.1 mmol/L (3.5-5.5); Sodium, Blood 137 mmol/L (136-145); Total Protein, Blood 6.5 g/dL (6.4-8.2)
--- NOTE | 2021-04-30 05:24 | NUR ---
SOIL EXPERT SUMMARY NEW ADMIT FROM THE ED TONIGHT. PT AAOX4 AND PLEASANT. INDEPENDENT IN ROOM. CAME IN WITH SBO. NPO TONIGHT TO REST BOWEL. SURGERY TO ASSESS PT LATER TODAY. ABD SOFT AND NON DISTENDED. BOWEL TONES X4. PT STATES LAST BM YESTERDAY. DENIES N/V. REPORTS SOME MILD TENDERNESS TO ABD WITH PALPATION BUT HAS NOT REQUIRED ANY PAIN MEDICATIONS SINCE ARRIVING TO THE FLOOR. VSS, WILL CONTINUE TO MONITOR.
--- NOTE | 2021-04-30 18:16 | NUR ---
PATIENT CURRENTLY SITTING UP IN BED HAVING HER CLEAR LIQUID DIET AND TOLERATING WELL. PATIENT HAS HAD NO COMPLAINTS OF PAIN OR NAUSEA TODAY. PATIENT HAS HAD MULTIPLE BMS TODAY THAT WERE LOOSE. NO SIGNS OR SYMPTOMS ACUTE DISTRESS NOTED. CALL LIGHT AND WATER IN EASY REACH. ABLE TO MAKE NEEDS AND WANTS KNOWN. WILL MONITOR.
[2021-05-01 04:53] LABS: Anion Gap 5 mmol/L (6-16); Blood Urea Nitrogen 10 mg/dL (8-24); Bun/Creatinine Ratio 15.2 (12.0-20.0); CO2, Blood 26 mmol/L (21-32); Calcium, Blood 8.4 mg/dL (8.5-10.1); Chloride, Blood 107 mmol/L (98-108); Creatinine, Blood 0.66 mg/dL (0.40-1.00); Glomerular Filtration Rate >60 (60-); Glucose, Blood 88 mg/dL (70-99); Potassium, Blood 3.8 mmol/L (3.5-5.5); Sodium, Blood 138 mmol/L (136-145)
--- NOTE | 2021-05-01 06:27 | NUR ---
SLEPT WELL THROUGH NIGHT. DENIED PAIN OR DISCOMFORT TO ABDOMEN. ABD SOFT, NON TENDER, BOWEL SOUNDS PRESENT IN ALL 4 QUADS. RESTING PEACEFULLY IN BED, SAFETY MAINTAINED, CALL ZAMBRANO IN REACH.
--- NOTE | 2021-05-01 11:13 | NUR ---
Pt. is in bed and is alert. Pt. welcomes my visit. Establish rapport. Pt. is pleasant and is engaged in our conversation. Facilitated a short life review. Listened empathetically. Explored issues of rossy and belief. Pt. displays evidence of reduced stress and encouragement. Prayed with Pt. Pt. verbalized gratitude for pastoral prayer and spiritual care.
[2021-05-01] MEDS ORDERED: MIRALAX17 GM PO (11:46)
--- NOTE | 2021-05-01 14:04 | NUR ---
1315 discharged to home with her son. pt carole regular diet without nausea or abd pain. pt ambulating in room. verbalizes understandiing of discharge instructions.pt denies pain
== END 2021-05-01 13:14 | disposition home or self-care (01) | DRG 390 ==
LOC: ER 16:22 → SURS 20:59
PROVIDERS: Internal Medicine; Physician Assistant; ADMIT Internal Medicine
DX: K56.609 Unspecified intestinal obstruction, unspecified as to partial versus complete obstruction (principal); K21.9 Gastro-esophageal reflux disease without esophagitis; J44.9 Chronic obstructive pulmonary disease, unspecified; M19.90 Unspecified osteoarthritis, unspecified site; F32.A Depression, unspecified; Z86.14 Personal history of Methicillin resistant Staphylococcus aureus infection; Z79.899 Other long term (current) drug therapy; Z88.5 Allergy status to narcotic agent; Z88.6 Allergy status to analgesic agent
CPT/HCPCS: 36415; 74177; 74250; 80048; 80053; 81001; 83690; 85025; 85610; 94760; 96374; 96374-59; 99284-25; A9270; J3010; J7042; Q9967

== ENCOUNTER 2021-09-15 05:51 | Inpatient (IN) | payer MEDICARE ==
[~2021-09-15] VITALS: Ht 157.5 cm; Wt 49.0 kg
[~2021-09-15 05:51] MED LIST changes: +MIRALAX17 GM PO
[2021-09-15 06:17] LABS: BASOPHILS ABSOLUTE AUTO 0.03 K/mm3 (0.00-0.23); BASOPHILS PERCENT AUTO 0 % (0-2); EOSINOPHILS ABSOLUTE AUTO 0.32 K/mm3 (0.00-0.68); EOSINOPHILS PERCENT AUTO 4 % (0-6); Hematocrit 38.8 % (33.0-51.0); Hemoglobin 12.4 g/dL (11.5-16.0); IMMATURE GRAN ABSOLUTE AUTO 0.03 K/mm3 (0.00-0.10); IMMATURE GRAN PERCENT AUTO 0 % (0-1); LYMPHOCYTES ABSOLUTE AUTO 1.95 K/mm3 (0.84-5.20); LYMPHOCYTES PERCENT AUTO 25 % (21-46); MONOCYTES ABSOLUTE AUTO 0.51 K/mm3 (0.16-1.47); MONOCYTES PERCENT AUTO 7 % (4-13); Mean Corpuscular HGB 29.9 pg (26.0-34.0); Mean Corpuscular Volume 94 fL (80-100); Mean Platelet Volume 9.9 fL (9.1-12.4); NEUTROPHILS ABSOLUTE AUTO 4.85 K/mm3 (1.96-9.15); NEUTROPHILS PERCENT AUTO 63 % (41-73); Platelet Count 255 K/mm3 (150-400); RDW Coefficient Variation 13.2 % (11.7-14.2); RDW Standard Deviation 45.2 fL (35.1-46.3); Red Blood Cell Count 4.15 M/mm3 (3.80-5.20); White Blood Cell Count 7.69 K/mm3 (4.00-11.30)
[2021-09-15 06:33] LABS: Albumin, Blood 3.3 g/dL (3.4-5.0); Albumin/Globulin Ratio 0.9 (0.8-1.8); Bilirubin, Total 0.3 mg/dL (0.1-1.0); Bun/Creatinine Ratio 14.5 (12.0-20.0); Calcium, Blood 9.1 mg/dL (8.5-10.1); Creatinine, Blood 0.69 mg/dL (0.40-1.00); Globulin, Blood 3.8 g/dL (2.2-4.0); Potassium, Blood 4.3 mmol/L (3.5-5.5); Total Protein, Blood 7.1 g/dL (6.4-8.2)
[2021-09-15 11:03] LABS: Source, Urine Clean Catch
[2021-09-15 11:20] LABS: Bilirubin, Urine Neg (Neg); Blood, Urine 2+ (Neg); Glucose Qualitative, Urine Neg (Neg); Ketones, Urine Neg (Neg); Leukocyte Esterase, Urine Neg (Neg); Nitrite, Urine Neg (Neg); Protein, Urine Neg (Neg); Urobilinogen, Urine NORM (Normal)
[2021-09-15 11:33] LABS: Appearance, Urine Clear (Clear); Bacteria Not Seen /hpf; Color, Urine Yellow (P-Yellow); Red Blood Cells, Urine 0-2 /hpf (0-2); Squamous Epithelial Cells Rare /hpf (Few); White Blood Cells, Urine Not Seen /hpf (0-5)
--- NOTE | 2021-09-15 18:29 | NUR ---
PT HAS BEEN NAUSEOUS AND DRY HEAVING SINCE ADMIT, MEDICATED W/ ZOFRAN AND FENTANYL IV FOR PAIN, WITH LITTLE RELIEF, RICA RUSH NOTIFIED RECEIVED ORDER FOR PHENERGAN, PT REPORT CURRENTLY NAUSEA IS "PRETTY GOOD" DENIES ANY NEED FOR PAIN MEDS AT THIS TIME, STANDBY ASSIST TO AMBULATE TO THE BATHROOM, GAIT STEADY, PLACED ON 2L O2 VIA NC WHILE ASLEEP, SATS 89% ON RA, 95% W/ O2, PT REPORTS HAVING A HX OF SLEEP APNEA AND O2 USE AT BEDTIME PRN, SURG CONSULT PENDING, DR. LOVE'X OFFICE NOTIFIED EARLIER TODAY, NO ACUTE CHANGES THIS SHIFT.
--- NOTE | 2021-09-16 04:35 | NUR ---
SHIFT SUMMARY NO ACUTE CHANGES THIS SHIFT. PT SLEPT WELL T/O NIGHT. FENTANYL PRN FOR ABD PAIN. MINIMAL NAUSEA THIS SHIFT. NPO WITH IVF INFUSING PER ORDERS. PT INDEP FROM BED TO CHAIR. USING KPAD FOR COMFORT. CALL LIGHT WITHIN REACH.
[2021-09-16 04:49] LABS: BASOPHILS ABSOLUTE AUTO 0.01 K/mm3 (0.00-0.23); BASOPHILS PERCENT AUTO 0 % (0-2); EOSINOPHILS ABSOLUTE AUTO 0.24 K/mm3 (0.00-0.68); EOSINOPHILS PERCENT AUTO 4 % (0-6); Hematocrit 38.5 % (33.0-51.0); Hemoglobin 11.9 g/dL (11.5-16.0); IMMATURE GRAN ABSOLUTE AUTO 0.01 K/mm3 (0.00-0.10); IMMATURE GRAN PERCENT AUTO 0 % (0-1); LYMPHOCYTES ABSOLUTE AUTO 2.72 K/mm3 (0.84-5.20); LYMPHOCYTES PERCENT AUTO 42 % (21-46); MONOCYTES ABSOLUTE AUTO 0.54 K/mm3 (0.16-1.47); MONOCYTES PERCENT AUTO 8 % (4-13); Mean Corpuscular HGB 29.8 pg (26.0-34.0); Mean Corpuscular HGB Conc 30.9 g/dL (31.5-36.5); Mean Corpuscular Volume 97 fL (80-100); Mean Platelet Volume 9.9 fL (9.1-12.4); NEUTROPHILS ABSOLUTE AUTO 2.97 K/mm3 (1.96-9.15); NEUTROPHILS PERCENT AUTO 46 % (41-73); Platelet Count 240 K/mm3 (150-400); RDW Coefficient Variation 13.3 % (11.7-14.2); RDW Standard Deviation 47.8 fL (35.1-46.3); Red Blood Cell Count 3.99 M/mm3 (3.80-5.20); White Blood Cell Count 6.49 K/mm3 (4.00-11.30)
[2021-09-16 05:24] LABS: Albumin, Blood 2.7 g/dL (3.4-5.0); Albumin/Globulin Ratio 0.8 (0.8-1.8); Bilirubin, Total 0.5 mg/dL (0.1-1.0); Bun/Creatinine Ratio 12.7 (12.0-20.0); Calcium, Blood 8.4 mg/dL (8.5-10.1); Creatinine, Blood 0.71 mg/dL (0.40-1.00); Globulin, Blood 3.3 g/dL (2.2-4.0); Magnesium, Blood 2.3 mg/dL (1.6-2.4); Potassium, Blood 4.3 mmol/L (3.5-5.5)
--- NOTE | 2021-09-16 07:17 | NUR ---
ASSUMED CARE: PT RESTING QUIETLY IN BED AT THIS TIME, TALKING TO STAFF DURING BEDSIDE REPORT. 2L NC IN PLACE. IVF RUNNING AT 100/HR. BOILERMAKER ASSEMBLY AND ERECTION AT BEDSIDE. NO ACUTE NEEDS AT THIS TIME.
--- NOTE | 2021-09-16 10:04 | NUR ---
DR ADAMES CAME TO ROUND ON PT. AWARE THAT DR LEY ROUNDED AND SAID PT COULD HAVE CLEAR LIQUIDS AND DISCHARGE IF SHE HAS A BOWEL MOVEMENT. DISCUSSED WITH DR VINCENT'S CURRENT PAIN REGIMEN AND SUGGESTED ORAL PAIN MEDS. PT DENIES FURTHER NEEDS OR CONCERNS AT THIS TIME.
--- NOTE | 2021-09-16 11:01 | NUR ---
Pt. is drowsing in bed but reponds when I enter the room. Pt. welcomes my visit. Pt. is pleasant. Pt. verbalizes that she lost her in May of this year. With a calming presence listen empathetically. Pt. displays evidence of trust and engagement. Drury for Pt. Pt. verbalizes gratitude for the Spiritual Care visit.
--- NOTE | 2021-09-16 13:26 | NUR ---
call to dr arroyo to let her know that pt had medium, formed bm. to review pt's chart to determine if she can be discharged now
--- NOTE | 2021-09-16 15:11 | NUR ---
CALL TO DR ADAMES REGARDING DC PLANS. STATES SHE'S NOT READY TO SEND PT HOME YET SINCE SHE HAS ONLY HAD ONE CLEAR LIQUID TRAY. PT REMOVED IV WHICH WAS OK WITH LEAVING OUT AT THIS TIME.
--- NOTE | 2021-09-16 18:45 | NUR ---
SHIFT SUMMARY: PT INDEPENDENT IN ROOM, MULTIPLE BMS THIS SHIFT. EVENING MIRALAX HELD FOR DIARRHEA. PT DC'D OWN IV, TOLERATING CLEAR LIQUIDS WELL. MEDICATED FOR PAIN X1. NO ACUTE NEEDS OR CONCERNS.
--- NOTE | 2021-09-17 05:21 | NUR ---
ASSUMED CARE OF PT AT 1900HRS. NO ACUTE CHANGES THIS SHIFT. PT IS A&OX4, INDEPENDENT IN ROOM AND IS ABLE TO MAKE NEEDS KNOWN. NO NAUSEA REPORTED THIS SHIFT, PT ABLE TO SLEEP 7+ HOURS. PT DENIES PAIN. HOPEFUL TO D/C TODAY. TOLERATING DIET. CALLS APPROPRIATELY.
[2021-09-17] MEDS ORDERED: ACET325 PO (11:17)
[2021-09-17] MEDS ORDERED: ONDA4ODT MM (11:18)
[2021-09-17] MEDS ORDERED: MIRALAX17 GM PO (11:19)
[2021-09-17] MEDS ORDERED: ALBU90OI INH (11:20)
--- NOTE | 2021-09-17 12:17 | NUR ---
DISCHARGE NOTE NO ACUTE EVENTS THIS SHIFT, VSS. PT ALERT AND ORIENTED, INDEPENDENT IN ROOM. PT AGREEABLE TO DISCHARGE. PT PROVIDED DISCHARGE INFO REGARDING FOLLOW UP PLANS, MEDICATION INFORMATION, AND REASONS TO RETURN TO THE HOSPITAL. PT VERBALIZED UNDERSTANDING. NO SIGNS OF ACUTE DISTRESS, TO LEAVE VIA PRIVATE VEHICLE.
== END 2021-09-17 12:00 | disposition home or self-care (01) | DRG 390 ==
LOC: ER 05:51 → SURS 09:48
PROVIDERS: Emergency Medicine; Nurse Practitioner Acute Care; ADMIT Hospitalist
DX: K56.51 Intestinal adhesions [bands], with partial obstruction (principal); K21.9 Gastro-esophageal reflux disease without esophagitis; J45.909 Unspecified asthma, uncomplicated; M06.9 Rheumatoid arthritis, unspecified; B02.9 Zoster without complications; F32.A Depression, unspecified; G43.909 Migraine, unspecified, not intractable, without status migrainosus; Z88.5 Allergy status to narcotic agent; Z88.6 Allergy status to analgesic agent; Z88.8 Allergy status to other drugs, medicaments and biological substances; Z79.899 Other long term (current) drug therapy; Z86.14 Personal history of Methicillin resistant Staphylococcus aureus infection; Z90.710 Acquired absence of both cervix and uterus; Z90.12 Acquired absence of left breast and nipple; Z98.890 Other specified postprocedural states; Z90.89 Acquired absence of other organs
CPT/HCPCS: 36415; 74022; 74177; 80053; 81001; 83690; 83735; 84484; 85025; 93005; 93010; 94760; 96374; 96375; 98960; 99285-25; A9270; C9113; J2405; J2550; J3010; J7030; Q9967

== ENCOUNTER → 2022-06-30 | Outpatient (CLI) | payer MEDICARE ==
[~2022-06-30] MED LIST changes: +ACET325 PO; +ALBU90OI INH; +ONDA4ODT MM
[2022-06-30 14:52] LABS: BASOPHILS ABSOLUTE AUTO 0.02 K/mm3 (0.00-0.23); BASOPHILS PERCENT AUTO 0 % (0-2); EOSINOPHILS ABSOLUTE AUTO 0.28 K/mm3 (0.00-0.68); EOSINOPHILS PERCENT AUTO 4 % (0-6); Hematocrit 37.8 % (33.0-51.0); IMMATURE GRAN ABSOLUTE AUTO 0.02 K/mm3 (0.00-0.10); IMMATURE GRAN PERCENT AUTO 0 % (0-1); LYMPHOCYTES ABSOLUTE AUTO 1.61 K/mm3 (0.84-5.20); LYMPHOCYTES PERCENT AUTO 22 % (21-46); MONOCYTES ABSOLUTE AUTO 0.54 K/mm3 (0.16-1.47); MONOCYTES PERCENT AUTO 7 % (4-13); Mean Corpuscular HGB 31.4 pg (26.0-34.0); Mean Corpuscular HGB Conc 31.7 g/dL (31.5-36.5); Mean Corpuscular Volume 99 fL (80-100); Mean Platelet Volume 11.1 fL (9.1-12.4); NEUTROPHILS ABSOLUTE AUTO 4.83 K/mm3 (1.96-9.15); NEUTROPHILS PERCENT AUTO 66 % (41-73); Platelet Count 226 K/mm3 (150-400); RDW Coefficient Variation 14.1 % (11.7-14.2); RDW Standard Deviation 51.9 fL (35.1-46.3); Red Blood Cell Count 3.82 M/mm3 (3.80-5.20)
[2022-06-30 15:49] LABS: Albumin, Blood 3.4 g/dL (3.4-5.0); Bilirubin, Total 0.5 mg/dL (0.1-1.0); Calcium, Blood 6.9 mg/dL (8.5-10.1); Creatinine, Blood 0.67 mg/dL (0.40-1.00); Globulin, Blood 3.3 g/dL (2.2-4.0); Potassium, Blood 5.4 mmol/L (3.5-5.5); Total Protein, Blood 6.7 g/dL (6.4-8.2)
== END | disposition home or self-care (01) ==
LOC: LAB SHORT 11:35 → LAB 11:35
PROVIDERS: Internal Medicine Rheumatology
DX: M05.9 Rheumatoid arthritis with rheumatoid factor, unspecified (principal)
CPT/HCPCS: 80053; 85025; 85651

== ENCOUNTER → 2022-12-30 | Outpatient (CLI) | payer MEDICARE ==
[~2022-12-30] MED LIST changes: +PRED1 PO
[2022-12-30 14:32] LABS: BASOPHILS ABSOLUTE AUTO 0.02 K/mm3 (0.00-0.23); BASOPHILS PERCENT AUTO 0 % (0-2); EOSINOPHILS ABSOLUTE AUTO 0.08 K/mm3 (0.00-0.68); EOSINOPHILS PERCENT AUTO 1 % (0-6); Hematocrit 41.3 % (33.0-51.0); Hemoglobin 13.2 g/dL (11.5-16.0); IMMATURE GRAN ABSOLUTE AUTO 0.05 K/mm3 (0.00-0.10); IMMATURE GRAN PERCENT AUTO 1 % (0-1); LYMPHOCYTES ABSOLUTE AUTO 1.45 K/mm3 (0.84-5.20); LYMPHOCYTES PERCENT AUTO 15 % (21-46); MONOCYTES ABSOLUTE AUTO 0.67 K/mm3 (0.16-1.47); MONOCYTES PERCENT AUTO 7 % (4-13); Mean Corpuscular HGB 30.5 pg (26.0-34.0); Mean Corpuscular Volume 95 fL (80-100); Mean Platelet Volume 10.4 fL (9.1-12.4); NEUTROPHILS ABSOLUTE AUTO 7.35 K/mm3 (1.96-9.15); NEUTROPHILS PERCENT AUTO 76 % (41-73); Platelet Count 316 K/mm3 (150-400); RDW Coefficient Variation 12.7 % (11.7-14.2); RDW Standard Deviation 44.3 fL (35.1-46.3); Red Blood Cell Count 4.33 M/mm3 (3.80-5.20); White Blood Cell Count 9.62 K/mm3 (4.00-11.30)
[2022-12-30 15:20] LABS: Albumin, Blood 3.1 g/dL (3.4-5.0); Albumin/Globulin Ratio 0.7 (0.8-1.8); Bilirubin, Total 0.3 mg/dL (0.1-1.0); Bun/Creatinine Ratio 18.4 (12.0-20.0); Creatinine, Blood 0.82 mg/dL (0.40-1.00); Globulin, Blood 4.3 g/dL (2.2-4.0); Potassium, Blood 3.9 mmol/L (3.5-5.5); Total Protein, Blood 7.4 g/dL (6.4-8.2)
[2023-01-01 10:12] LABS: HBSAG SCREEN Negative (Negative); HCV AB Non Reactive (Non Reactive); HEP A AB, IGM Positive (Negative); HEP B CORE AB, TOT Negative (Negative)
[2023-01-05 09:10] LABS: QUANTIFERON MITOGEN VALUE >10.00 IU/mL (.); QUANTIFERON NIL VALUE 0.14 IU/mL (.); QUANTIFERON TB1 AG VALUE 0.28 IU/mL (.); QUANTIFERON TB2 AG VALUE 0.23 IU/mL (.); QUANTIFERON-TB GOLD PLUS Negative (Negative)
== END ==
LOC: LAB 11:26 → LAB SHORT 11:26
PROVIDERS: Internal Medicine Rheumatology
DX: M05.9 Rheumatoid arthritis with rheumatoid factor, unspecified (principal)
CPT/HCPCS: 80053; 85025; 85651; 86480; 86704; 86708; 86803; 87340

== ENCOUNTER 2023-01-05 07:18 | Inpatient (IN) | payer MEDICARE ==
[~2023-01-05] VITALS: Ht 152.4 cm; Wt 59.0 kg
[~2023-01-05 07:18] MED LIST changes: -PRED1 PO
[2023-01-05] MEDS ORDERED: PRED1 PO (08:07)
[2023-01-05 08:08] LABS: BASOPHILS ABSOLUTE AUTO 0.03 K/mm3 (0.00-0.23); BASOPHILS PERCENT AUTO 0 % (0-2); EOSINOPHILS ABSOLUTE AUTO 0.19 K/mm3 (0.00-0.68); EOSINOPHILS PERCENT AUTO 1 % (0-6); Hematocrit 41.1 % (33.0-51.0); Hemoglobin 13.3 g/dL (11.5-16.0); IMMATURE GRAN ABSOLUTE AUTO 0.05 K/mm3 (0.00-0.10); IMMATURE GRAN PERCENT AUTO 0 % (0-1); LYMPHOCYTES ABSOLUTE AUTO 3.73 K/mm3 (0.84-5.20); LYMPHOCYTES PERCENT AUTO 26 % (21-46); MONOCYTES ABSOLUTE AUTO 0.98 K/mm3 (0.16-1.47); MONOCYTES PERCENT AUTO 7 % (4-13); Mean Corpuscular HGB 30.4 pg (26.0-34.0); Mean Corpuscular HGB Conc 32.4 g/dL (31.5-36.5); Mean Corpuscular Volume 94 fL (80-100); Mean Platelet Volume 10.1 fL (9.1-12.4); NEUTROPHILS ABSOLUTE AUTO 9.54 K/mm3 (1.96-9.15); NEUTROPHILS PERCENT AUTO 66 % (41-73); Platelet Count 295 K/mm3 (150-400); Red Blood Cell Count 4.37 M/mm3 (3.80-5.20); White Blood Cell Count 14.52 K/mm3 (4.00-11.30)
[2023-01-05 08:25] LABS: Albumin, Blood 3.2 g/dL (3.4-5.0); Albumin/Globulin Ratio 0.7 (0.8-1.8); Bilirubin, Total 0.4 mg/dL (0.1-1.0); Bun/Creatinine Ratio 17.3 (12.0-20.0); Creatinine, Blood 0.81 mg/dL (0.40-1.00); Globulin, Blood 4.3 g/dL (2.2-4.0); Potassium, Blood 3.6 mmol/L (3.5-5.5); Total Protein, Blood 7.5 g/dL (6.4-8.2)
[2023-01-05 13:51] VITALS: BP 135/72
--- NOTE | 2023-01-05 17:46 | NUR ---
Spiritual Care visit. Pt. is awake in bed when she welcomed my visit. Pt. is pleasant. Facilitate a life review. Pt. displayed evidence of being aware and engaged. Pt is unsettled about the sudden nature of her condition. Prayed with Pt. Pt. verbalized gratitude for the spiritual care visit.
--- NOTE | 2023-01-05 18:04 | NUR ---
pt in for abdominal pain that is worsening and naursea. Pt has polst on file that states DNR. On admit she stated she maoy have polst. Review with her and she became distraught and said she needs to review with her son. Will call her son the review will see if pt will need a GI or surgical consult or recovers.
[2023-01-05 19:23] VITALS: BP 125/73
--- NOTE | 2023-01-05 19:23 | NUR ---
ADMIT: REPORT RECEIVED FROM ED RN. PT TO UNIT AT ABOUT 1340. A/O VSS. PT DENIES PAIN OR NAUSEA AT THIS TIME. FLUIDS STARTED AND PT ORIENTED TO ROOM, CALL LIGHT. NPO AT THIS TIME. DENIES ANY IGNITION SOURCES AND EDUCATED ON FIRE SAFETY.
[2023-01-06 04:23] VITALS: BP 120/73
[2023-01-06 04:54] LABS: BASOPHILS ABSOLUTE AUTO 0.01 K/mm3 (0.00-0.23); BASOPHILS PERCENT AUTO 0 % (0-2); EOSINOPHILS ABSOLUTE AUTO 0.03 K/mm3 (0.00-0.68); EOSINOPHILS PERCENT AUTO 1 % (0-6); Hematocrit 36.9 % (33.0-51.0); Hemoglobin 11.6 g/dL (11.5-16.0); IMMATURE GRAN ABSOLUTE AUTO 0.02 K/mm3 (0.00-0.10); IMMATURE GRAN PERCENT AUTO 0 % (0-1); LYMPHOCYTES PERCENT AUTO 21 % (21-46); MONOCYTES ABSOLUTE AUTO 0.38 K/mm3 (0.16-1.47); MONOCYTES PERCENT AUTO 6 % (4-13); Mean Corpuscular HGB 30.1 pg (26.0-34.0); Mean Corpuscular HGB Conc 31.4 g/dL (31.5-36.5); Mean Corpuscular Volume 96 fL (80-100); NEUTROPHILS ABSOLUTE AUTO 4.75 K/mm3 (1.96-9.15); NEUTROPHILS PERCENT AUTO 72 % (41-73); Platelet Count 256 K/mm3 (150-400); RDW Coefficient Variation 13.2 % (11.7-14.2); RDW Standard Deviation 46.4 fL (35.1-46.3); Red Blood Cell Count 3.86 M/mm3 (3.80-5.20); White Blood Cell Count 6.59 K/mm3 (4.00-11.30)
[2023-01-06 05:34] LABS: Albumin, Blood 2.4 g/dL (3.4-5.0); Albumin/Globulin Ratio 0.7 (0.8-1.8); Bilirubin, Total 0.4 mg/dL (0.1-1.0); Bun/Creatinine Ratio 14.8 (12.0-20.0); Calcium, Blood 8.2 mg/dL (8.5-10.1); Creatinine, Blood 0.74 mg/dL (0.40-1.00); Globulin, Blood 3.3 g/dL (2.2-4.0); Potassium, Blood 4.4 mmol/L (3.5-5.5); Total Protein, Blood 5.7 g/dL (6.4-8.2)
[2023-01-06 07:13] VITALS: BP 120/73
--- NOTE | 2023-01-06 07:29 | NUR ---
SHIFT SUMMARY NOC. PT ADMITTED YESTERDAY FOR SBO. PT A/O X4. PT DENIES N/V AND IS NPO STATUS. PT'S LR RUNNING AND IV PATENT. PT MEDICATED FOR ABDOMINAL AND BACK PAIN WITH RELIEF OF SYMPTOMS. PT VOIDING URINE AND UP TO THE BATHROOM WITH SBA. PT RESTED WITH EYES CLOSED AND CALL LIGHT IN REACH.
[2023-01-06 14:28] VITALS: BP 119/71
--- NOTE | 2023-01-06 18:37 | NUR ---
SHIFT SUMMARY PATIENT SBO CURRENTLY ON SIPS OF CL. HAVING SOME PAIN, MANAGED WITH IV FENT. IV FLUIDS RUNNING IN R AC. VOIDING AND ABULATING TO BATHROOM. AOX4 CALLS APPROPRIATELY. CALL LIGHT IN REACH VSS.
[2023-01-06 19:32] VITALS: BP 114/71
[2023-01-07 04:10] VITALS: BP 129/74
--- NOTE | 2023-01-07 04:39 | NUR ---
SHIFT SUMMARY S/P SBO. PT ON BOWEL REST, MINIMAL CLEAR DIET ORDERED. BOWEL TONES NOTED IN LOWER QUADRANTS, FAINT IN UPPER QUADRANTS. IV FLUIDS RUNNING FOR HYDRATION. VSS, PT ON 1L NC PRN TO MAINTAIN O2 SAT >88% WHILE ASLEEP, BIOX IN USE. AMBULATES TO RESTROOM SBA R/T LINES, BEDREST OTHERWISE ORDERED. PAIN MANAGED PER EMAR. CALL LIGHT WITHIN REACH, BED IN LOWEST POSITION, WILL REPORT TO DAY RN.
[2023-01-07 07:27] VITALS: BP 117/89
--- NOTE | 2023-01-07 12:13 | NUR ---
Spiritual Care Visit. Pt. is awake in bed when I enter the room. Pt. welcomes my visit. Pt. is pleasant. Facilitated story-telling for the purpose of building trust and rapport. By asking guided questions and through active listening rapport is established. The Pt. displayed evidence of louis during the process. Prayed with the Pt. Pt. verbalized gratitude for the spiritual care visit.
--- NOTE | 2023-01-07 13:31 | NUR ---
SMALL BOWEL FOLLOW THROUGH PATIENT RETURNED FROM IMAGING AND HAD SEVERAL LARGE LOOSE BM'S, AND A SMALL AMOUNT OF EMESIS. IVF RUNNING @ 75/HR. PATIENT IS BACK IN BED WITH HEAT PAD AWAITING TEACHERS ASSISTANT TO RETURN FOR FOLLOW UP IMAGES.
--- NOTE | 2023-01-07 17:56 | NUR ---
SHIFT SUMMARY PATIENT HAD SMALL BOWEL FOLLOW THROUGH TODAY AND HAD SEVERAL BM'S. SMALL AMOUNT OF EMESIS. IV FLUIDS RUNNING, TOLERATING SMALL SIPS OF WATER. BOWEL TONES IN ALL QUADRANTS. PASSING FLATUS. SHOWERED AND AMBULATED IN HALLWAYS TODAY.
[2023-01-07 20:39] VITALS: BP 126/71
[2023-01-08 02:21] VITALS: BP 128/68
--- NOTE | 2023-01-08 05:36 | NUR ---
SHIFT SUMMARY NO ACUTE CHANGES TO REPORT OVERNIGHT, PT BOWEL TONES ARE HYPERACTIVE X4 QUADRANTS. PT HAD SEVERAL BOWEL MOVEMENTS DURING DAYSHIFT AFTER BOWEL FOLLOW THROUGH, AND IS PASSING GAS. PT HAS BEEN ABLE TO TOLERATE BROTH WITHOUT NAUSEA OR PAIN. IVF INFUSING, VITALS STABLE. PT HAS RESTED T/O THE SHIFT.
[2023-01-08 07:11] VITALS: BP 131/64
[2023-01-08 14:15] VITALS: BP 119/68
--- NOTE | 2023-01-08 14:26 | NUR ---
DISCHARGING PT TOLERATED FULL LIQUID LUNCH. REVIEWED DC INSTRUCTIONS W/PT; VERBALIZED UNDERSTANDING. DC'D IV, CATHETER INTACT. PT CALLED SISTER FOR RIDE, AWAITING HER ARRIVAL. CALL LIGHT IN REACH.
--- NOTE | 2023-01-08 14:58 | NUR ---
discharged PT LEFT UNIT IN WC W/POSSESSIONS AND DC PAPERWORK IN HAND TO RIDE WAITING OUTSIDE.
== END 2023-01-08 15:00 | disposition home or self-care (01) | DRG 390 ==
LOC: ER 07:18 → SURS 11:51 → MEDS 11:51 → SURS 13:55
PROVIDERS: Emergency Medicine; ADMIT Internal Medicine
DX: K56.600 Partial intestinal obstruction, unspecified as to cause (principal); J45.909 Unspecified asthma, uncomplicated; K21.9 Gastro-esophageal reflux disease without esophagitis; M06.9 Rheumatoid arthritis, unspecified; G43.909 Migraine, unspecified, not intractable, without status migrainosus; Z79.52 Long term (current) use of systemic steroids; Z90.49 Acquired absence of other specified parts of digestive tract; Z88.5 Allergy status to narcotic agent; Z96.653 Presence of artificial knee joint, bilateral
CPT/HCPCS: 36415; 74177; 74250; 80053; 83605; 83690; 84484; 85025; 93005; 93010; 94762; 96374-59; 96375; 96376; 99285-25; J1720; J2405; J3010; J7120; Q9967

== ENCOUNTER 2023-11-28 10:22 | Emergency (ER) | payer MEDICARE ==
[~2023-11-28] VITALS: Ht 154.9 cm; Wt 52.6 kg
[~2023-11-28 10:22] MED LIST changes: +PRED1 PO
[2023-11-28 11:20] LABS: BASOPHILS ABSOLUTE AUTO 0.02 K/mm3 (0.00-0.23); BASOPHILS PERCENT AUTO 0 % (0-2); EOSINOPHILS ABSOLUTE AUTO 0.07 K/mm3 (0.00-0.68); EOSINOPHILS PERCENT AUTO 1 % (0-6); Hematocrit 37.1 % (33.0-51.0); IMMATURE GRAN ABSOLUTE AUTO 0.01 K/mm3 (0.00-0.10); IMMATURE GRAN PERCENT AUTO 0 % (0-1); LYMPHOCYTES ABSOLUTE AUTO 1.58 K/mm3 (0.84-5.20); LYMPHOCYTES PERCENT AUTO 24 % (21-46); MONOCYTES ABSOLUTE AUTO 0.65 K/mm3 (0.16-1.47); MONOCYTES PERCENT AUTO 10 % (4-13); Mean Corpuscular HGB 29.3 pg (26.0-34.0); Mean Corpuscular HGB Conc 32.3 g/dL (31.5-36.5); Mean Corpuscular Volume 91 fL (80-100); Mean Platelet Volume 8.7 fL (9.1-12.4); NEUTROPHILS ABSOLUTE AUTO 4.26 K/mm3 (1.96-9.15); NEUTROPHILS PERCENT AUTO 65 % (41-73); Platelet Count 350 K/mm3 (150-400); RDW Coefficient Variation 14.2 % (11.7-14.2); RDW Standard Deviation 47.6 fL (35.1-46.3); Red Blood Cell Count 4.09 M/mm3 (3.80-5.20); White Blood Cell Count 6.59 K/mm3 (4.00-11.30)
[2023-11-28 11:48] LABS: Albumin, Blood 2.5 g/dL (3.4-5.0); Albumin/Globulin Ratio 0.6 (0.8-1.8); Bilirubin, Total 0.4 mg/dL (0.1-1.0); Bun/Creatinine Ratio 17.7 (12.0-20.0); Calcium, Blood 9.1 mg/dL (8.5-10.1); Creatinine, Blood 0.68 mg/dL (0.40-1.00); Globulin, Blood 4.2 g/dL (2.2-4.0); Potassium, Blood 3.8 mmol/L (3.5-5.5); Total Protein, Blood 6.7 g/dL (6.4-8.2)
[2023-11-28 15:41] VITALS: BP 147/86
[2023-11-28 16:42] LABS: Source, Urine Voided
[2023-11-28 16:46] LABS: Appearance, Urine Hazy (Clear); Bilirubin, Urine Neg (Neg); Blood, Urine 1+ (Neg); Color, Urine Yellow (P-Yellow); Glucose Qualitative, Urine Neg (Neg); Ketones, Urine 1+ (Neg); Leukocyte Esterase, Urine Neg (Neg); Nitrite, Urine Neg (Neg); Protein, Urine 2+ (Neg); Specific Gravity, Urine 1.015 (1.003-1.022); Urobilinogen, Urine 2+ (Normal); pH, Urine 6.5 (5.0-8.0)
[2023-11-28 17:35] LABS: Bacteria Mod /hpf; Squamous Epithelial Cells Rare /hpf (Few); White Blood Cells, Urine 0-2 /hpf (0-5)
[2023-11-28 17:36] LABS: Mucus Light (0-Heavy)
[2023-11-28] MEDS ORDERED: METPRE4DP PO (18:59)
[2023-11-28] MEDS ORDERED: CELE100 PO (18:59)
== END 2023-11-28 19:25 | disposition home or self-care (01) ==
LOC: ER 10:22
PROVIDERS: Emergency Medicine; Physician Assistant
DX: M43.17 Spondylolisthesis, lumbosacral region (principal); M54.17 Radiculopathy, lumbosacral region; J45.909 Unspecified asthma, uncomplicated; G43.909 Migraine, unspecified, not intractable, without status migrainosus; K21.9 Gastro-esophageal reflux disease without esophagitis; Z90.49 Acquired absence of other specified parts of digestive tract; Z88.5 Allergy status to narcotic agent; Z88.6 Allergy status to analgesic agent; Z79.52 Long term (current) use of systemic steroids; Z79.899 Other long term (current) drug therapy
CPT/HCPCS: 72131; 73502; 80053; 81001; 85025; 87086; 99284-25; P9612

== ENCOUNTER 2023-12-21 17:25 | Emergency (ER) | payer OTHER, MEDICARE ==
[~2023-12-21] VITALS: Ht 152.4 cm; Wt 52.6 kg
[2023-12-21 21:56] LABS: BASOPHILS ABSOLUTE AUTO 0.02 K/mm3 (0.00-0.23); BASOPHILS PERCENT AUTO 0 % (0-2); EOSINOPHILS ABSOLUTE AUTO 0.11 K/mm3 (0.00-0.68); EOSINOPHILS PERCENT AUTO 1 % (0-6); Hemoglobin 11.8 g/dL (11.5-16.0); IMMATURE GRAN ABSOLUTE AUTO 0.06 K/mm3 (0.00-0.10); IMMATURE GRAN PERCENT AUTO 1 % (0-1); LYMPHOCYTES ABSOLUTE AUTO 1.41 K/mm3 (0.84-5.20); LYMPHOCYTES PERCENT AUTO 16 % (21-46); MONOCYTES ABSOLUTE AUTO 0.74 K/mm3 (0.16-1.47); MONOCYTES PERCENT AUTO 9 % (4-13); Mean Corpuscular HGB 29.9 pg (26.0-34.0); Mean Corpuscular HGB Conc 31.9 g/dL (31.5-36.5); Mean Corpuscular Volume 94 fL (80-100); Mean Platelet Volume 9.2 fL (9.1-12.4); NEUTROPHILS PERCENT AUTO 73 % (41-73); Platelet Count 247 K/mm3 (150-400); RDW Coefficient Variation 14.2 % (11.7-14.2); RDW Standard Deviation 49.1 fL (35.1-46.3); Red Blood Cell Count 3.95 M/mm3 (3.80-5.20); White Blood Cell Count 8.74 K/mm3 (4.00-11.30)
[2023-12-21 22:13] LABS: Albumin, Blood 2.6 g/dL (3.4-5.0); Albumin/Globulin Ratio 0.8 (0.8-1.8); Bilirubin, Total 0.5 mg/dL (0.1-1.0); Bun/Creatinine Ratio 17.1 (12.0-20.0); Calcium, Blood 8.5 mg/dL (8.5-10.1); Creatinine, Blood 0.76 mg/dL (0.40-1.00); Globulin, Blood 3.2 g/dL (2.2-4.0); Potassium, Blood 3.8 mmol/L (3.5-5.5); Total Protein, Blood 5.8 g/dL (6.4-8.2)
[2023-12-21] MEDS ORDERED: Ketorolac Tromethamine 15mg Vial IV ONE (22:20)
[2023-12-22] MEDS ORDERED: Ibuprofen 400 MG Tab PO PRN (12:55)
[2023-12-22 14:21] VITALS: BP 97/61
== END 2023-12-22 15:34 | disposition home or self-care (01) ==
LOC: ER 17:25
PROVIDERS: Student in an Organized Health Care Education/Training Program
DX: S32.512A Fracture of superior rim of left pubis, initial encounter for closed fracture (principal); S80.02XA Contusion of left knee, initial encounter; W01.0XXA Fall on same level from slipping, tripping and stumbling without subsequent striking against object, initial encounter; Z88.5 Allergy status to narcotic agent; Z88.6 Allergy status to analgesic agent; Z79.899 Other long term (current) drug therapy; J45.909 Unspecified asthma, uncomplicated; K21.9 Gastro-esophageal reflux disease without esophagitis; F32.A Depression, unspecified
CPT/HCPCS: 71250; 72131; 72192; 73502; 73562-LT; 80053; 85025; 96374; 97116; 97162; 97530; 99285-25; A9270; J1885

== ENCOUNTER 2024-01-12 19:55 | Emergency (ER) | payer MEDICARE ==
[~2024-01-12] VITALS: Ht 157.5 cm; Wt 54.4 kg
[2024-01-12 20:01] VITALS: BP 135/91
[2024-01-12] MEDS ORDERED: Lidocaine 4% 1 Patch TOP ONE (21:05)
[2024-01-12] MEDS ORDERED: LIDO700A20 TOP (21:07)
== END 2024-01-12 21:27 | disposition home or self-care (01) ==
LOC: ER 19:55
DX: M54.16 Radiculopathy, lumbar region (principal); M25.551 Pain in right hip; K21.9 Gastro-esophageal reflux disease without esophagitis; G43.909 Migraine, unspecified, not intractable, without status migrainosus; J45.909 Unspecified asthma, uncomplicated; Z79.52 Long term (current) use of systemic steroids; Z79.899 Other long term (current) drug therapy; Z88.5 Allergy status to narcotic agent
CPT/HCPCS: 73502; 99283-25; A9270

== ENCOUNTER 2024-01-18 12:45 | Emergency (ER) | payer MEDICARE ==
[~2024-01-18] VITALS: Ht 162.6 cm; Wt 68.0 kg
[~2024-01-18 12:45] MED LIST changes: +LIDO700A20 TOP
[2024-01-18 14:07] VITALS: BP 141/80
[2024-01-18 15:28] LABS: Source, Urine Voided
[2024-01-18 15:36] LABS: BASOPHILS ABSOLUTE AUTO 0.02 K/mm3 (0.00-0.23); BASOPHILS PERCENT AUTO 0 % (0-2); EOSINOPHILS ABSOLUTE AUTO 0.05 K/mm3 (0.00-0.68); EOSINOPHILS PERCENT AUTO 1 % (0-6); Hematocrit 38.1 % (33.0-51.0); Hemoglobin 12.2 g/dL (11.5-16.0); IMMATURE GRAN ABSOLUTE AUTO 0.03 K/mm3 (0.00-0.10); IMMATURE GRAN PERCENT AUTO 0 % (0-1); LYMPHOCYTES ABSOLUTE AUTO 0.97 K/mm3 (0.84-5.20); LYMPHOCYTES PERCENT AUTO 13 % (21-46); MONOCYTES ABSOLUTE AUTO 0.26 K/mm3 (0.16-1.47); MONOCYTES PERCENT AUTO 4 % (4-13); Mean Corpuscular HGB 30.2 pg (26.0-34.0); Mean Corpuscular Volume 94 fL (80-100); Mean Platelet Volume 9.1 fL (9.1-12.4); NEUTROPHILS ABSOLUTE AUTO 6.11 K/mm3 (1.96-9.15); NEUTROPHILS PERCENT AUTO 82 % (41-73); Platelet Count 337 K/mm3 (150-400); RDW Standard Deviation 48.8 fL (35.1-46.3); Red Blood Cell Count 4.04 M/mm3 (3.80-5.20); White Blood Cell Count 7.44 K/mm3 (4.00-11.30)
[2024-01-18 15:38] LABS: Bilirubin, Urine Neg (Neg); Blood, Urine Neg (Neg); Glucose Qualitative, Urine Neg (Neg); Ketones, Urine Neg (Neg); Leukocyte Esterase, Urine Neg (Neg); Nitrite, Urine Neg (Neg); Protein, Urine Neg (Neg); Specific Gravity, Urine 1.005 (1.003-1.022); Urobilinogen, Urine NORM (Normal)
[2024-01-18 15:48] LABS: Appearance, Urine Clear (Clear); Color, Urine Yellow (P-Yellow)
[2024-01-18 15:53] LABS: Albumin, Blood 2.7 g/dL (3.4-5.0); Albumin/Globulin Ratio 0.7 (0.8-1.8); Bilirubin, Total 0.2 mg/dL (0.1-1.0); Bun/Creatinine Ratio 27.5 (12.0-20.0); Calcium, Blood 9.2 mg/dL (8.5-10.1); Creatinine, Blood 0.65 mg/dL (0.40-1.00); Globulin, Blood 3.8 g/dL (2.2-4.0); Potassium, Blood 4.7 mmol/L (3.5-5.5); Total Protein, Blood 6.5 g/dL (6.4-8.2)
[2024-01-18] MEDS ORDERED: LIDO700A20 TOP (16:14)
[2024-01-18] MEDS ORDERED: TRAM50 PO (16:14)
== END 2024-01-18 17:21 | disposition home or self-care (01) ==
LOC: ER 12:45
PROVIDERS: Emergency Medicine
DX: M54.16 Radiculopathy, lumbar region (principal); J45.909 Unspecified asthma, uncomplicated; G43.909 Migraine, unspecified, not intractable, without status migrainosus; K21.9 Gastro-esophageal reflux disease without esophagitis; Z90.49 Acquired absence of other specified parts of digestive tract; Z96.653 Presence of artificial knee joint, bilateral; Z91.81 History of falling; Z88.5 Allergy status to narcotic agent; Z88.6 Allergy status to analgesic agent; Z79.52 Long term (current) use of systemic steroids; Z79.1 Long term (current) use of non-steroidal anti-inflammatories (NSAID); Z79.899 Other long term (current) drug therapy
CPT/HCPCS: 72100; 72170; 80053; 81003; 85025; 99284-25